=== PATIENT | male | born 1950 | race Caucasian/White ===

== ENCOUNTER 2023-02-12 06:49 | Day surgery (SDC) | payer OTHER ==
[~2023-02-12] VITALS: Ht 172.7 cm; Wt 91.6 kg
[~2023-02-12 06:49] MED LIST: METFORMIN HCL1000 M2 PO; ZESTRIL10 M1 PO
[2023-02-12] MEDS ORDERED: NEURONTIN300 MG PO (15:27)
[2023-02-12] MEDS ORDERED: PERCOCET 5-3251 EACH PO (15:27)
[2023-02-12] MEDS ORDERED: POLY119PG PO (15:28)
[2023-02-12] MEDS ORDERED: INTESTINEX680 M1 PO (17:55)
[2023-02-12] MEDS ORDERED: AMOX-CLAV 875-1 EACH PO (17:55)
== END 2023-02-12 17:30 | disposition home or self-care (01) ==
LOC: CIR.AMB 06:49
PROVIDERS: ATTEND Surgery
DX: K80.10 Calculus of gallbladder with chronic cholecystitis without obstruction (principal); D76.3 Other histiocytosis syndromes; R59.0 Localized enlarged lymph nodes; Z20.822 Contact with and (suspected) exposure to COVID-19; I10 Essential (primary) hypertension; E11.9 Type 2 diabetes mellitus without complications